=== PATIENT | male | born 1950 | race Caucasian/White ===

== ENCOUNTER 2020-01-18 07:48 | Day surgery (SDC) | payer OTHER, SELFPAY ==
[~2020-01-18] VITALS: Ht 188 cm; Wt 96.2 kg
[2020-01-18] MEDS ORDERED: diphenhydrAMINE 50 MG/ML VIAL ONE (09:19)
[2020-01-18] MEDS ORDERED: fentaNYL citrate 0.05 MG/ML VIAL ONE (09:19)
[2020-01-18] MEDS ORDERED: LIDOCAINE 2% 100 MG/5 ML UJET TP ONE (09:20)
[2020-01-18] MEDS ORDERED: MIDAZOLAM 5 MG/5 ML VIAL ONE (09:20)
[2020-01-18] MEDS ORDERED: fentaNYL citrate 0.05 MG/ML VIAL IVP ONE (10:25)
[2020-01-18] MEDS ORDERED: MIDAZOLAM 2 MG/2 ML VIAL IV ONE (10:25)
[2020-01-18] MEDS ORDERED: carvediloL 12.5 MG TAB PO SCH (11:03)
[2020-01-18] MEDS ORDERED: carvediloL 12.5 MG TAB PO ONE (11:12)
== END 2020-01-18 11:30 | disposition home or self-care (01) ==
LOC: MOR 07:48 → MMU 07:49 → MOR 11:30
PROVIDERS: ATTEND Internal Medicine Gastroenterology
DX: Z12.11 Encounter for screening for malignant neoplasm of colon (principal); D12.0 Benign neoplasm of cecum; K62.1 Rectal polyp; I10 Essential (primary) hypertension; Z79.82 Long term (current) use of aspirin; Z79.899 Other long term (current) drug therapy; Z98.890 Other specified postprocedural states; Z20.828 Contact with and (suspected) exposure to other viral communicable diseases
CPT/HCPCS: 45385; 88305; J2250; J3010; U0003; J1200